=== PATIENT | male | born 1935 | race Caucasian/White ===

== ENCOUNTER → 2020-08-08 04:32 | Outpatient (CLI) | payer MEDICARE ==
[2020-08-08 05:14] LABS: BASOPHILS 0.2 % (0-2); EOSINOPHILS 0.8 % (0-7); HEMATOCRIT 37.7 % (42.0-54.0); HEMOGLOBIN 11.6 g/dL (13.5-17.5); IMMATURE GRANULOCYTES 0.7 % (0-5); LYMPHOCYTE ABS# 1.33 10x3/uL (1.32-3.57); MCH 32.3 pg (26.0-34.0); MCHC 30.8 g/dL (31.0-37.0); MEAN PLATELET VOLUME 11.1 fL (7.4-10.4); MONOCYTES 5.1 % (2-11); NEUTROPHILS 80.2 % (40-80); RBC 3.59 10x6/uL (4.20-6.10); WBC 10.2 10x3/uL (4.8-10.8)
[2020-08-08 05:24] LABS: ALBUMIN 1.8 g/dL (3.4-5.0); ALKALINE PHOSPHATASE 152 U/L (30-120); ALT (SGPT) 81 U/L (10-68); BILIRUBIN - TOTAL 0.31 mg/dL (0.2-1.3); CALC OSMOLALITY 275 mosm/kg (275-300); CALCIUM 7.9 mg/dL (8.5-10.1); CARBON DIOXIDE 19.6 mmol/L (21.0-32.0); CHLORIDE - SERUM 103 mmol/L (98-107); CREATININE - SERUM 0.5 mg/dL (0.6-1.3); PLATELET COUNT 365 10x3/uL (130-400); POTASSIUM - SERUM 4.2 mmol/L (3.5-5.1); PROTEIN - SERUM 5.1 g/dL (6.4-8.2); SODIUM 138 mmol/L (136-145); UREA NITROGEN 17 mg/dL (7-18); eGFR NON AFRICAN AMERICAN > 90 mL/min (90-120)
[2020-08-08 05:33] LABS: GLUCOSE 71 mg/dL (74-106)
== END | disposition home or self-care (01) ==
LOC: D.LABREF 04:32
PROVIDERS: ATTEND Family Medicine
DX: J18.9 Pneumonia, unspecified organism (principal)

== ENCOUNTER → 2020-08-23 18:36 | Outpatient (CLI) | payer MEDICARE ==
[2020-08-23 18:59] LABS: BILIRUBIN NEGATIVE (NEGATIVE); KETONE NEGATIVE (NEGATIVE); NITRITE NEGATIVE (NEGATIVE); UROBILINOGEN NORMAL mg/dL (< 2)
[2020-08-23 19:00] LABS: BACTERIA MANY HPF (NONE SEEN); SQUAMOUS EPITHELIAL 0-5 HPF (0-4)
== END | disposition home or self-care (01) ==
LOC: D.LABREF 18:36
PROVIDERS: ATTEND Family Medicine
DX: R41.82 Altered mental status, unspecified (principal)

== ENCOUNTER → 2020-09-03 17:41 | Outpatient (CLI) | payer MEDICARE ==
[2020-09-03 19:47] LABS: BASOPHILS 0.1 % (0-2); HEMATOCRIT 35.5 % (42.0-54.0); HEMOGLOBIN 11.5 g/dL (13.5-17.5); IMMATURE GRANULOCYTES 0.6 % (0-5); LYMPHOCYTES 19.8 % (15-50); MCH 32.2 pg (26.0-34.0); MCHC 32.4 g/dL (31.0-37.0); MCV 99.4 fL (80.0-100.0); MEAN PLATELET VOLUME 9.3 fL (7.4-10.4); MONOCYTES 6.2 % (2-11); NEUTROPHIL ABS# 7.68 10x3/uL (1.78-5.38); NEUTROPHILS 72.3 % (40-80); RBC 3.57 10x6/uL (4.20-6.10); RDW 13.7 % (11.5-14.5); WBC 10.6 10x3/uL (4.8-10.8)
[2020-09-03 19:54] LABS: PLATELET COUNT 500 10x3/uL (130-400)
== END | disposition home or self-care (01) ==
LOC: D.LABREF 17:41
PROVIDERS: ATTEND Family Medicine
DX: R41.82 Altered mental status, unspecified (principal)

== ENCOUNTER → 2020-09-04 16:53 | Outpatient (CLI) | payer MEDICARE ==
[2020-09-04 18:43] LABS: ALBUMIN 2.8 g/dL (3.4-5.0); ALKALINE PHOSPHATASE 105 U/L (30-120); ALT (SGPT) 25 U/L (10-68); BILIRUBIN - TOTAL 0.28 mg/dL (0.2-1.3); CALC OSMOLALITY 286 mosm/kg (275-300); CALCIUM 9.5 mg/dL (8.5-10.1); CARBON DIOXIDE 31.8 mmol/L (21.0-32.0); CHLORIDE - SERUM 103 mmol/L (98-107); CREATININE - SERUM 0.7 mg/dL (0.6-1.3); GLUCOSE 101 mg/dL (74-106); POTASSIUM - SERUM 4.4 mmol/L (3.5-5.1); PROTEIN - SERUM 6.6 g/dL (6.4-8.2); SODIUM 139 mmol/L (136-145); UREA NITROGEN 39 mg/dL (7-18); eGFR NON AFRICAN AMERICAN > 90 mL/min (90-120)
== END | disposition home or self-care (01) ==
LOC: D.LABREF 16:53
PROVIDERS: ATTEND Family Medicine
DX: R41.82 Altered mental status, unspecified (principal)

== ENCOUNTER → 2020-09-15 17:33 | Outpatient (CLI) | payer MEDICARE ==
[2020-09-15 17:48] LABS: BASOPHILS 0.1 % (0-2); EOSINOPHILS 0 % (0-7); HEMATOCRIT 36.9 % (42.0-54.0); HEMOGLOBIN 11.9 g/dL (13.5-17.5); IMMATURE GRANULOCYTES 0.3 % (0-5); LYMPHOCYTE ABS# 1.69 10x3/uL (1.32-3.57); LYMPHOCYTES 9.2 % (15-50); MCH 32.5 pg (26.0-34.0); MCHC 32.2 g/dL (31.0-37.0); MCV 100.8 fL (80.0-100.0); MEAN PLATELET VOLUME 11.5 fL (7.4-10.4); MONOCYTES 6.3 % (2-11); NEUTROPHIL ABS# 15.38 10x3/uL (1.78-5.38); NEUTROPHILS 84.1 % (40-80); PLATELET COUNT 278 10x3/uL (130-400); RBC 3.66 10x6/uL (4.20-6.10); RDW 14.1 % (11.5-14.5); WBC 18.3 10x3/uL (4.8-10.8)
[2020-09-15 17:55] LABS: BILIRUBIN NEGATIVE (NEGATIVE); KETONE NEGATIVE (NEGATIVE); NITRITE NEGATIVE (NEGATIVE); UROBILINOGEN NORMAL mg/dL (< 2)
[2020-09-15 17:56] LABS: AMORPHOUS SEDIMENT >1+ LPF (NONE SEEN); BACTERIA MODERATE HPF (NONE SEEN); WHITE CELLS - URINE 25-50 HPF (0-1)
[2020-09-15 17:59] LABS: CALC OSMOLALITY 290 mosm/kg (275-300); CALCIUM 8.4 mg/dL (8.5-10.1); CHLORIDE - SERUM 103 mmol/L (98-107); CREATININE - SERUM 0.7 mg/dL (0.6-1.3); GLUCOSE 139 mg/dL (74-106); POTASSIUM - SERUM 3.6 mmol/L (3.5-5.1); SODIUM 141 mmol/L (136-145); UREA NITROGEN 35 mg/dL (7-18); eGFR NON AFRICAN AMERICAN > 90 mL/min (90-120)
== END | disposition home or self-care (01) ==
LOC: D.LABREF 17:33
PROVIDERS: ATTEND Family Medicine
DX: A41.9 Sepsis, unspecified organism (principal); J18.9 Pneumonia, unspecified organism

== ENCOUNTER → 2020-09-16 20:38 | Outpatient (CLI) | payer MEDICARE | END | disposition home or self-care (01) | LOC: D.LABREF 20:38 | DX: R41.82 Altered mental status, unspecified (principal) ==

== ENCOUNTER → 2020-09-26 18:05 | Outpatient (CLI) | payer MEDICARE ==
[2020-09-26 18:27] LABS: BASOPHILS 0.1 % (0-2); EOSINOPHILS 0.7 % (0-7); HEMATOCRIT 38.4 % (42.0-54.0); HEMOGLOBIN 11.8 g/dL (13.5-17.5); IMMATURE GRANULOCYTES 0.5 % (0-5); LYMPHOCYTE ABS# 1.87 10x3/uL (1.32-3.57); LYMPHOCYTES 11.7 % (15-50); MCH 31.5 pg (26.0-34.0); MCHC 30.7 g/dL (31.0-37.0); MCV 102.4 fL (80.0-100.0); MEAN PLATELET VOLUME 10.7 fL (7.4-10.4); MONOCYTES 5.5 % (2-11); NEUTROPHIL ABS# 12.96 10x3/uL (1.78-5.38); NEUTROPHILS 81.5 % (40-80); RBC 3.75 10x6/uL (4.20-6.10); RDW 14.1 % (11.5-14.5); WBC 15.9 10x3/uL (4.8-10.8)
[2020-09-26 18:28] LABS: PLATELET COUNT 466 10x3/uL (130-400)
[2020-09-26 18:37] LABS: BILIRUBIN NEGATIVE (NEGATIVE); KETONE NEGATIVE (NEGATIVE); NITRITE NEGATIVE (NEGATIVE); UROBILINOGEN NORMAL mg/dL (< 2)
[2020-09-26 18:39] LABS: BACTERIA FEW HPF (NONE SEEN); SQUAMOUS EPITHELIAL 0-5 HPF (0-4); WHITE CELLS - URINE 0-5 HPF (0-1)
[2020-09-26 18:50] LABS: ALBUMIN 2.3 g/dL (3.4-5.0); ALKALINE PHOSPHATASE 158 U/L (30-120); ALT (SGPT) 31 U/L (10-68); BILIRUBIN - TOTAL 0.23 mg/dL (0.2-1.3); CALC OSMOLALITY 300 mosm/kg (275-300); CALCIUM 8.9 mg/dL (8.5-10.1); CARBON DIOXIDE 30.8 mmol/L (21.0-32.0); CHLORIDE - SERUM 108 mmol/L (98-107); CREATININE - SERUM 0.8 mg/dL (0.6-1.3); GLUCOSE 117 mg/dL (74-106); POTASSIUM - SERUM 4.3 mmol/L (3.5-5.1); PROTEIN - SERUM 6.7 g/dL (6.4-8.2); SODIUM 147 mmol/L (136-145); UREA NITROGEN 35 mg/dL (7-18); eGFR NON AFRICAN AMERICAN > 90 mL/min (90-120)
== END | disposition home or self-care (01) ==
LOC: D.LABREF 18:05
PROVIDERS: ATTEND Family Medicine
DX: R53.83 Other fatigue (principal)

== ENCOUNTER → 2020-10-16 08:38 | Outpatient (CLI) | payer MEDICARE ==
[2020-10-16 09:39] LABS: BILIRUBIN NEGATIVE (NEGATIVE); KETONE NEGATIVE (NEGATIVE); NITRITE POSITIVE (NEGATIVE); UROBILINOGEN NORMAL mg/dL (< 2)
[2020-10-16 09:40] LABS: BACTERIA FEW HPF (NONE SEEN)
== END | disposition home or self-care (01) ==
LOC: D.LABREF 08:38
PROVIDERS: ATTEND Family Medicine
DX: R41.0 Disorientation, unspecified (principal)

== ENCOUNTER → 2020-10-23 09:09 | Outpatient (CLI) | payer MEDICARE ==
[2020-10-23 09:50] LABS: CALC OSMOLALITY 275 mosm/kg (275-300); CALCIUM 8.7 mg/dL (8.5-10.1); CARBON DIOXIDE 30.9 mmol/L (21.0-32.0); CHLORIDE - SERUM 99 mmol/L (98-107); CREATININE - SERUM 0.7 mg/dL (0.6-1.3); GENTAMICIN - TROUGH 1.2 ug/mL (0.5-2.0); GLUCOSE 132 mg/dL (74-106); POTASSIUM - SERUM 4.5 mmol/L (3.5-5.1); SODIUM 134 mmol/L (136-145); UREA NITROGEN 29 mg/dL (7-18); eGFR NON AFRICAN AMERICAN > 90 mL/min (90-120)
== END | disposition home or self-care (01) ==
LOC: D.LABREF 09:09
PROVIDERS: ATTEND Family Medicine
DX: Z51.81 Encounter for therapeutic drug level monitoring (principal)

== ENCOUNTER → 2020-10-25 10:57 | Outpatient (CLI) | payer MEDICARE ==
[2020-10-25 11:27] LABS: GENTAMICIN - PEAK 1.4 ug/mL (5.0-10.0); GENTAMICIN - TROUGH 1.4 ug/mL (0.5-2.0)
== END | disposition home or self-care (01) ==
LOC: D.LABREF 10:57
PROVIDERS: ATTEND Family Medicine
DX: Z51.81 Encounter for therapeutic drug level monitoring (principal)

== ENCOUNTER → 2020-10-29 13:26 | Outpatient (CLI) | payer MEDICARE | END | disposition home or self-care (01) | LOC: D.LABREF 13:26 | PROVIDERS: ATTEND Family Medicine | DX: Z51.81 Encounter for therapeutic drug level monitoring (principal) ==

== ENCOUNTER → 2020-10-31 14:32 | Outpatient (CLI) | payer MEDICARE | END | disposition home or self-care (01) | LOC: D.LABREF 14:32 | PROVIDERS: ATTEND Family Medicine | DX: Z51.81 Encounter for therapeutic drug level monitoring (principal) ==

== ENCOUNTER → 2020-11-02 16:17 | Outpatient (CLI) | payer MEDICARE ==
[2020-11-02 17:01] LABS: BILIRUBIN NEGATIVE (NEGATIVE); KETONE NEGATIVE (NEGATIVE); NITRITE NEGATIVE (NEGATIVE); UROBILINOGEN NORMAL mg/dL (< 2)
[2020-11-02 17:05] LABS: BACTERIA FEW HPF (NONE SEEN); SQUAMOUS EPITHELIAL NONE SEEN HPF (0-4); WHITE CELLS - URINE 0-5 HPF (0-1)
[2020-11-02 17:06] LABS: AMORPHOUS SEDIMENT MANY LPF (NONE SEEN)
== END | disposition home or self-care (01) ==
LOC: D.LABREF 16:17
PROVIDERS: ATTEND Family Medicine
DX: Z79.2 Long term (current) use of antibiotics (principal)

== ENCOUNTER → 2020-11-29 12:51 | Outpatient (CLI) | payer MEDICARE ==
[2020-11-29 14:52] LABS: AMORPHOUS SEDIMENT RARE LPF (<FEW); BILIRUBIN NEGATIVE (NEGATIVE); KETONE NEGATIVE mg/dL (< 1+); NITRITE NEGATIVE (NEGATIVE); PH 7.5 (5.0-8.0); UROBILINOGEN 2 mg/dL (< 2); WHITE CELLS - URINE 13 HPF (0-1)
== END | disposition home or self-care (01) ==
LOC: D.LABREF 12:51
PROVIDERS: ATTEND Family Medicine
DX: Z79.899 Other long term (current) drug therapy (principal)